=== PATIENT | female | born 1985 | race African-American/Black ===

== ENCOUNTER 2017-11-26 18:42 | Emergency (ER) | payer MEDICAID, OTHER ==
[~2017-11-26] VITALS: Ht 162.6 cm; Wt 57.0 kg
[2017-11-26] MEDS ORDERED: FLUO10CA25 PO (18:48)
[2017-11-26] MEDS ORDERED: DIPH25CA83 PO (18:48)
[2017-11-26 20:30] VITALS: BP 121/69
== END 2017-11-26 21:41 | disposition left against medical advice (07) ==
LOC: ER 19:01
DX: Z53.21 Procedure and treatment not carried out due to patient leaving prior to being seen by health care provider (principal); J45.909 Unspecified asthma, uncomplicated; F32.9 Major depressive disorder, single episode, unspecified; F17.200 Nicotine dependence, unspecified, uncomplicated

== ENCOUNTER 2017-11-27 20:42 | Emergency (ER) | payer OTHER ==
[~2017-11-27] VITALS: Ht 157.5 cm; Wt 52.0 kg
[~2017-11-27 20:42] MED LIST: DIPH25CA83 PO; FLUO10CA25 PO
[2017-11-27 20:47] VITALS: BP 95/62
== END 2017-11-27 22:00 | disposition left against medical advice (07) ==
LOC: ER 20:42
DX: R53.1 Weakness (principal); R06.02 Shortness of breath; Z53.21 Procedure and treatment not carried out due to patient leaving prior to being seen by health care provider

== ENCOUNTER 2018-02-24 07:42 | Emergency (ER) | payer OTHER ==
[~2018-02-24] VITALS: Ht 157.5 cm; Wt 45.0 kg
[2018-02-24 08:33] VITALS: BP 93/66
[2018-02-24] MEDS ORDERED: LORAZEPAM 1MG TABLET PO ONE (08:45)
[2018-02-24] MEDS ORDERED: BACITRACIN ZINC OINT UDPKT TOP ONE (08:45)
[2018-02-24] MEDS ORDERED: TETANUS, DIPHTHERIA, PERTUSSIS VAC/PF 0.5ML (>7YR OLD) IM ONE (08:45)
[2018-02-24] MEDS ORDERED: LIDOCAINE 1%/EPI 1:100,000 10 ML VIAL IJ ONE (08:45)
[2018-02-24 08:59] LABS: CLARITY URINE CLOUDY (CLEAR); COLOR URINE YELLOW (YELLOW); KETONES URINE TRACE (NEGATIVE); LEUKOCYTE ESTERASE URINE NEGATIVE (NEGATIVE); NITRITE URINE NEGATIVE (NEGATIVE); OCCULT BLOOD URINE TRACE (NEGATIVE); PH URINE 5.5 (4.5-8.0); PROTEIN URINE NEGATIVE (NEGATIVE); SPECIFIC GRAVITY URINE 1.028 (1.005-1.030)
[2018-02-24] MEDS ORDERED: LIDOCAINE HCL/EPINEPHRINE 1%-EPI 1:100,000 20 ML VIAL INFIL ONE (09:00)
[2018-02-24 09:20] LABS: HEMATOCRIT. 35.9 % (36.0-48.0); HEMOGLOBIN. 11.3 g/dL (12.0-16.0); MEAN CORPUSCULAR HEMOGLOBIN 23.5 pg (28.0-32.0); MEAN CORPUSCULAR VOLUME 74.6 fL (81.0-99.0); MEAN PLATELET VOLUME 7.1 fl (7.4-10.4); PLATELET 338 x1000/uL (130-400); RED BLOOD CELL COUNT 4.81 mill/uL (4.2-5.4); RED CELL DISTRIBUTION WIDTH 20.5 % (11.6-14.6)
[2018-02-24 09:25] LABS: CHLORIDE 107 mEq/L (98-107)
[2018-02-24 09:29] LABS: ETHANOL BLOOD < 10 mg/dL
[2018-02-24 09:32] LABS: *AMPHETAMINES SCREEN URINE NEGATIVE (NEGATIVE); *BARBITURATES SCREEN URINE NEGATIVE (NEGATIVE); *BENZODIAZEPINES SCREEN URINE NEGATIVE (NEGATIVE); *COCAINE SCREEN URINE NEGATIVE (NEGATIVE); METHADONE URINE SCREEN NEGATIVE (NEGATIVE); OPIATES URINE SCREEN NEGATIVE (NEGATIVE)
[2018-02-24 09:33] LABS: PHENCYCLIDINE URINE SCREEN NEGATIVE (NEGATIVE)
[2018-02-24 09:42] LABS: CANNABINOID URINE SCREEN PRESUMTIVE POSITIVE (NEGATIVE)
[2018-02-24 09:44] LABS: PLATELET ESTIMATE NORMAL
== END 2018-02-24 10:07 | disposition left against medical advice (07) ==
LOC: ER 07:42
DX: S61.512A Laceration without foreign body of left wrist, initial encounter (principal); F41.9 Anxiety disorder, unspecified; F32.9 Major depressive disorder, single episode, unspecified; F43.10 Post-traumatic stress disorder, unspecified; Z88.8 Allergy status to other drugs, medicaments and biological substances; Z79.899 Other long term (current) drug therapy; Z98.51 Tubal ligation status; X78.8XXA Intentional self-harm by other sharp object, initial encounter; Y93.89 Activity, other specified; Y92.89 Other specified places as the place of occurrence of the external cause; Y99.8 Other external cause status
CPT/HCPCS: 36415; 80053; 80305; 80307; 80329; 81003; 81025; 85025; 90471; 90715; 99284; G0482; J3490; X7700

== ENCOUNTER 2018-02-25 15:39 | Emergency (ER) | payer OTHER ==
[~2018-02-25] VITALS: Ht 154.9 cm; Wt 43.0 kg
[2018-02-25 15:45] VITALS: BP 100/75
[2018-02-25] MEDS ORDERED: BACITRACIN ZINC OINT UDPKT TOP ONE (18:00)
== END 2018-02-25 19:14 | disposition home or self-care (01) ==
LOC: ER 15:39
DX: S61.512A Laceration without foreign body of left wrist, initial encounter (principal); W45.8XXA Other foreign body or object entering through skin, initial encounter; Y93.89 Activity, other specified; Y92.89 Other specified places as the place of occurrence of the external cause; Y99.8 Other external cause status; F41.9 Anxiety disorder, unspecified; F32.9 Major depressive disorder, single episode, unspecified; F17.200 Nicotine dependence, unspecified, uncomplicated; F12.10 Cannabis abuse, uncomplicated; Z88.8 Allergy status to other drugs, medicaments and biological substances; Z98.890 Other specified postprocedural states
CPT/HCPCS: 99283

== ENCOUNTER 2018-11-07 15:58 | Emergency (ER) | payer OTHER ==
[~2018-11-07] VITALS: Ht 170.2 cm; Wt 59.0 kg
[2018-11-07 17:34] LABS: BASOPHILS % 1.1 % (0.0-2.0); EOSINOPHILS % 0.1 % (0.0-5.0); HEMATOCRIT. 37.6 % (36.0-48.0); HEMOGLOBIN. 11.9 g/dL (12.0-16.0); LYMPHOCYTES % 19.1 % (20.0-50.0); MEAN CORPUSCULAR HEMOGLOBIN 24.9 pg (28.0-32.0); MEAN CORPUSCULAR VOLUME 79.1 fL (81.0-99.0); MEAN PLATELET VOLUME 6.8 fl (7.4-10.4); MONOCYTES % 6.1 % (2.0-8.0); NEUTROPHILS % 73.6 % (40.0-76.0); PLATELET 339 x1000/uL (130-400); RED BLOOD CELL COUNT 4.76 mill/uL (4.2-5.4); RED CELL DISTRIBUTION WIDTH 20.9 % (11.6-14.6)
[2018-11-07 17:37] LABS: CHLORIDE 107 mEq/L (98-107)
[2018-11-07 17:40] LABS: ETHANOL BLOOD < 10 mg/dL
[2018-11-07] MEDS ORDERED: HALOPERIDOL LACTATE 5MG/ML VIAL IM STA (18:26)
[2018-11-07] MEDS ORDERED: LORAZEPAM 2MG/ML CPJ IM STA (18:26)
[2018-11-07] MEDS ORDERED: BACITRACIN ZINC OINT UDPKT TOP ONE (18:30)
[2018-11-07 19:04] LABS: HCG SCREEN NEGATIVE
[2018-11-07 20:26] LABS: CLARITY URINE CLOUDY (CLEAR); COLOR URINE YELLOW (YELLOW); KETONES URINE TRACE (NEGATIVE); LEUKOCYTE ESTERASE URINE 2+ (NEGATIVE); NITRITE URINE NEGATIVE (NEGATIVE); OCCULT BLOOD URINE 3+ (NEGATIVE); PROTEIN URINE 1+ (NEGATIVE); UROBILINOGEN URINE 0.2 E.U./dL (0.2-1.0)
[2018-11-07 20:36] LABS: *COCAINE SCREEN URINE NEGATIVE (NEGATIVE)
[2018-11-07 20:37] LABS: *AMPHETAMINES SCREEN URINE NEGATIVE (NEGATIVE); *BARBITURATES SCREEN URINE NEGATIVE (NEGATIVE); METHADONE URINE SCREEN NEGATIVE (NEGATIVE); OPIATES URINE SCREEN NEGATIVE (NEGATIVE); PHENCYCLIDINE URINE SCREEN NEGATIVE (NEGATIVE)
[2018-11-07 20:39] LABS: *BENZODIAZEPINES SCREEN URINE NEGATIVE (NEGATIVE); CANNABINOID URINE SCREEN PRESUMTIVE POSITIVE (NEGATIVE)
[2018-11-07] MEDS ORDERED: LIDOCAINE HCL 1% 20ML VIAL (Pyxis) INJ INFIL ONE (21:00)
[2018-11-07] MEDS ORDERED: CEFTRIAXONE SODIUM 1 G/VIAL IM ONE (21:00)
[2018-11-08] MEDS ORDERED: LORAZEPAM 1MG TABLET PO ONE (09:15)
[2018-11-08] MEDS ORDERED: QUETIAPINE FUMARATE 100MG TABLET PO STA (13:57)
[2018-11-08 18:35] VITALS: BP 111/64
== END 2018-11-08 19:29 ==
LOC: ER 16:03
DX: S61.512A Laceration without foreign body of left wrist, initial encounter (principal); F23 Brief psychotic disorder; N39.0 Urinary tract infection, site not specified; F43.10 Post-traumatic stress disorder, unspecified; F41.9 Anxiety disorder, unspecified; F12.10 Cannabis abuse, uncomplicated; R45.851 Suicidal ideations; Z75.1 Person awaiting admission to adequate facility elsewhere; Z88.8 Allergy status to other drugs, medicaments and biological substances; Z98.890 Other specified postprocedural states; X78.9XXA Intentional self-harm by unspecified sharp object, initial encounter; Y93.89 Activity, other specified; Y92.018 Other place in single-family (private) house as the place of occurrence of the external cause
CPT/HCPCS: 36415; 80053; 80305; 80307; 80320; 80329; 81003; 81025; 84703; 85025; 96372; 99285; J0696; J1630; J2060; G0480